=== PATIENT | male | born 1950 | race Caucasian/White ===

== ENCOUNTER 2024-08-15 12:35 | Emergency (ER) | payer MEDICARE ==
[~2024-08-15] VITALS: Ht 188 cm; Wt 93.0 kg
--- NOTE | 2024-08-15 13:05 | ERN ---
ED Note History of Present Illness Stated Complaint: FALL Chief Complaint: Mechanical Fall Time Seen by MD: 12:48 Dictation: PATIENT IS A 74-YEAR-OLD MALE HE IS ON ELIQUIS, STATES HE HAD A SAME LEVEL TRIP FALL YESTERDAY STATES HE WAS WALKING WHEN HE TRIPPED LANDED ON HIS LEFT CHEST RIB AREA. DID NOT HIT HIS HEAD NO NECK PAIN NO SPINE PAIN. STATES IT HURTS WHEN HE TAKES A BREATH. ALSO HAS A AN ABRASION WITH PAIN TO RANGE OF MOTION TO LEFT ELBOW. LAST TETANUS SHOT IS UNKNOWN. PATIENT DOES NOT MEET TRAUMA ALERT CRITERIA. Allergies: Coded Allergies: No Known Drug Allergies (Unverified Allergy, Unknown, 08/15/24) Past Medical History Past Medical History: A-Fib, Hypertension, Stroke Surgical History: Other Surgical History Other: HERNIA REPAIR RN Note Reviewed/Agreed w/PFSH: Yes Review of System Dictation CONSTITUTIONAL: NEGATIVE EXCEPT FOR HPI HEAD/FACE: NEGATIVE EXCEPT FOR HPI EENT: NEGATIVE EXCEPT FOR HPI RESPIRATORY: NEGATIVE EXCEPT FOR HPI LEFT LATERAL CHEST PAIN GASTROINTESTINAL/ABDOMINAL: NEGATIVE EXCEPT FOR HPI GENITOURINARY: NEGATIVE EXCEPT FOR HPI MUSCULOSKELETAL: NEGATIVE EXCEPT FOR HPI LEFT ELBOW PAIN WITH SKIN TEAR NOT REPAIRABLE INTEGUMENTARY: NEGATIVE EXCEPT FOR HPI NEUROLOGICAL/PSYCH: NEGATIVE EXCEPT FOR HPI HEMATOLOGIC/LYMPHATIC: NEGATIVE EXCEPT FOR HPI ALL SYSTEMS NEGATIVE, EXCEPT NOTED ABOVE. 13 POINT REVIEW OF SYSTEMS ASSESSED AND ALL NEGATIVE EXCEPT FOR ABOVE. Initial Vital Sign VS Vital Signs Date Time Temp Pulse Resp B/P (MAP) Pulse Ox O2 Delivery O2 Flow Rate FiO2 08/15/24 12:45 97.5 53 16 144/63 94 Room Air* 0 21 Physical Exam Dictation VITAL SIGNS REVIEWED GENERAL APPEARANCE: ALERT, ORIENTED X 3, MODERATE ACUTE DISTRESS, WELL DEVELOPED, NOURISHED. HEAD AND FACE: NON-TRAUMATIC. EYES: PERRL, PINK CONJUNCTIVAS, EYELID NO TRAUMA, ANTERIOR CHAMBER WITH ARCUS SENILIS. EARS: PINNAS INTACT AND NO SIGNS OF TRAUMA OR ERYTHEMA EAR CANALS CLEAR AND NO DISCHARGE TM NO ERYTHEMA NOSE: NO DISCHARGE, NO BLEEDING. OROPHARYNX: MOUTH NORMAL, TONGUE PINK, PHARYNX CLEAR,NO ERYTHEMA, TONSILS NO EXUDATES, NO ABSCESSES NOTED, MUCOUS MEMBRANE MOIST NECK: SUPPLE, NON-TENDER, NO THYROMEGALY, NO MASSES, NO JVD, NO BRUITS BREAST:DEFERRED CHEST LEFT POSTEROLATERAL CHEST WALL TENDERNESS WITH PALPATION TENDERNESS, NO CREPITUS, NO PARADOXICAL MOVEMENT, NO RETRACTIONS NO FLAIL T LUNGS:CLEAR, WELL-VENTILATED, SYMMETRIC, NO RALES, NO WHEEZING, NO RHONCHI, NO STRIDOR, GOOD BREATH SOUNDS BILATERALLY HEART: REGULAR RATE, REGULAR RHYTHM, NO MURMUR, NO GALLOPS VASCULAR: NO PERIPHERAL EDEMA, ABDOMEN: SOFT, POSITIVE BOWEL SOUNDS, NONDISTENDED, NO GUARDING, NONTENDER, NO REBOUND, NO MASSES NO HEPATOMEGALY, NO SPLENOMEGALY, NO TALLEY'S SIGN, NO HERNIAS. RECTAL: DEFERRED GENITAL: DEFERRED NEUROLOGICAL: NORMAL SPEECH, MOTOR FUNCTION INTACT, SENSORY FUNCTION INTACT MUSCULOSKELETAL: NECK NONTENDER, FULL RANGE OF MOTION, BACK NONTENDER, FULL RANGE OF MOTION, EXTREMITIES: TENDERNESS WITH PALPATION TO LEFT POSTERIOR ELBOW, FULL RANGE OF MOTION SKIN: COLOR PINK, DRY, SKIN TEAR WITH SKIN AVULSION TO LEFT ELBOW NO REPAIR POSSIBLE. LYMPHATIC: DEFERRED Results (Laboratory/Radiology) Laboratory/Radiology Clinical Information: LEFT LATERAL ANTERIOR RIB PAIN STATUS POST SAME LEVEL FALL YESTERDAY Comparison: None Findings: Routine views reveal no evidence of fracture, dislocation, destructive process, or other rib abnormalities. No soft tissue abnormality is noted either. There is no evidence of pneumothorax. IMPRESSION: NORMAL RIB SERIES. Inferior vena cava filter seen. Comparison: None Findings: The bone examination is unremarkable. No fractures or dislocations are seen. No radiopaque foreign bodies are noted. Soft tissues are preserved. IMPRESSION: Normal examination. Labs Reviewed?: Yes ED Course ED Course Orders Procedure Category Date Status Time Ribs Uni Lt W Pa RAD 08/15/24 Resulted Chest 3+Vws 12:49 Acetaminophen With PHA 08/15/24 Complete Codeine (Tylenol-Code 13:00 Neomy PHA 08/15/24 Complete Sulf/Bacitra/Polymyxin 13:00 Tetanus,Diphtheria PHA 08/15/24 Complete Tox [Adult] (Diphther 13:00 Elbow Comp 3+Vws Lt RAD 08/15/24 Resulted 12:49 *Nursing CPOE 08/15/24 Transmitted Communication: 12:49 Current Medications Medications (Trade) Dose Ordered Sig/Kris Route PRN Reason Start Time Stop Time Status Last Admin Dose Admin Acetaminophen/ Codeine Phosphate (TYLenol-coDEINE TAB) 2 tab ONCE ONCE PO 08/15/24 13:00 08/15/24 13:01 DC 08/15/24 13:45 Neomycin/ Polymyxin/ Bacitracin (Triple Antibiotic Ointment) 1 appl ONCE ONCE TP 08/15/24 13:00 08/15/24 13:01 DC 08/15/24 13:45 Tetanus/ Diphtheria Toxoids Adsorbed (DiphthERIA-teTANUS TOXOID [ADULT]/ DECAVAC) 0.5 ml ONCE ONCE IM 08/15/24 13:00 08/15/24 13:01 DC 08/15/24 13:46 Vital Signs Date Time Temp Pulse Resp B/P (MAP) Pulse Ox O2 Delivery O2 Flow Rate FiO2 08/15/24 13:35 97.9 54 20 121/59 96 Room Air* 0 21 08/15/24 12:45 97.9 56 16 144/63 94 Room Air 0 08/15/24 12:45 97.5 53 16 144/63 94 Room Air* 0 21 1405, PATIENT STATES PAIN IS REDUCED AFTER TREATMENT. TETANUS WAS UPDATED AND PATIENT AWARE THAT HE HAS A CONTUSED CHEST WALL AND LEFT ELBOW WITH SKIN TEAR. HE WILL BE PLACED ON ANTIBIOTICS AND TOLD TO SEE HIS PRIMARY CARE DOCTOR FOR FOLLOW UP. Medical Decision Making MDM MEDICAL DISCHARGE MAKING BASED ON X-RAYS OF CHEST AND LEFT ELBOW TETANUS WAS UPDATED PAIN MANAGED AND PATIENT DISCHARGE NEUROLOGICALLY INTACT. HE WILL BE PLACED ON ANTIBIOTICS AND TOLD TO SEE A DOCTOR ON THE LIST PROVIDED HIM IN THE NEXT 2-3 DAYS DX & DISP Disposition: Discharge Departure Impression: Primary Impression: Contusion of left chest wall Additional Impressions: Contusion of left elbow, initial encounter, Skin tear of left upper extremity Condition: Stable Scripts Cephalexin (Cephalexin) 500 Mg Tablet 1 TAB PO TID for 7 Days, #21 TAB 0 Refills Prov: GLORIA RIVERA FLIGHT OPERATIONS COORDINATOR 08/15/24 Acetaminophen with Codeine (Acetaminophen-Cod #3 Tablet) 300 Mg-30 Mg Tablet 1 TAB PO Q6H PRN for MODERATE TO SEVERE PAIN, #15 TAB 0 Refills Prov: GLORIA RIVERA FLIGHT OPERATIONS COORDINATOR 08/15/24 Additional Instructions: Follow-up with primary care provider in 1 to 2 days. Take medications as directed here in the emergency room. Okay to continue home medications unless otherwise discussed during your visit in the emergency room today. Return to your nearest emergency room if symptoms worsen or if there is no improvement. Call 911 if you need immediate assistance. Take Tylenol or Motrin over -the-counter as needed and if no contraindications are present. Increase oral hydration. A wound culture or urine culture was ordered here in the emergency room department please follow-up with primary care provider and advise them to get repeat ports from our facility. If you had any Michael wrap/splints that were applied here, please do not remove them until you see your primary care or specialty. Take antibiotics as directed until gone. Apply triple antibiotic ointment/[id number] twice a day for five days to skin tear with nonadhesive dressing. Follow up with one of the doctors on the list provided you in the next 1-2 days as needed. Time of Disposition: 14:06 I have reviewed the case, and I agree with, Diagnosis and Plan GLORIA RIVERA NP Aug 15, 2024 13:04
[2024-08-15 13:35] VITALS: TEMP 97.8
[2024-08-15] MEDS: NEOMY SULF/BACITRA/POLYMYXIN B 1 EACH PACKET TP ONE (13:45)
[2024-08-15] MEDS: acetaMINOPHEN WITH coDEINE 1 TAB TAB PO ONE (13:45)
[2024-08-15] MEDS: teTANUS/diphthERIA TOXOID [ADULT] 0.5 ML VIAL IM ONE (13:46)
--- NOTE | 2024-08-15 14:00 | HMCIMG ---
Exam Type: ELBOW COMP 3+VWS LT Clinical Information: LEFT ELBOW PAIN WITH SKIN TEAR STATUS POST FALL Comparison: None Findings: The bone examination is unremarkable. No fractures or dislocations are seen. No radiopaque foreign bodies are noted. Soft tissues are preserved. IMPRESSION: Normal examination.
--- NOTE | 2024-08-15 14:01 | HMCIMG ---
Exam Type: RIBS UNI LT W PA CHEST 3+VWS Clinical Information: LEFT LATERAL ANTERIOR RIB PAIN STATUS POST SAME LEVEL FALL YESTERDAY Comparison: None Findings: Routine views reveal no evidence of fracture, dislocation, destructive process, or other rib abnormalities. No soft tissue abnormality is noted either. There is no evidence of pneumothorax. IMPRESSION: NORMAL RIB SERIES. Inferior vena cava filter seen.
[2024-08-15] MEDS ORDERED: ACET-2079 PO (14:07)
[2024-08-15] MEDS ORDERED: CEPH500T PO (14:07)
[2024-08-15 14:14] VITALS: BP 128/63; PULSE 57; RESP 18; O2SAT 96
== END 2024-08-15 14:26 | disposition home or self-care (01) ==
LOC: EDH 12:35
DX: S41.112A Laceration without foreign body of left upper arm, initial encounter (principal); S20.212A Contusion of left front wall of thorax, initial encounter; S40.022A Contusion of left upper arm, initial encounter; S50.02XA Contusion of left elbow, initial encounter; I10 Essential (primary) hypertension; Z86.73 Personal history of transient ischemic attack (TIA), and cerebral infarction without residual deficits; Z98.890 Other specified postprocedural states; W01.0XXA Fall on same level from slipping, tripping and stumbling without subsequent striking against object, initial encounter; Y93.89 Activity, other specified; Y92.89 Other specified places as the place of occurrence of the external cause; Y99.8 Other external cause status
CPT/HCPCS: 71101; 73080; 90471; 90714; 99284